=== PATIENT | female | born 1955 | race Caucasian/White ===

== ENCOUNTER 2017-04-14 07:30 | Inpatient (IN) | payer OTHER ==
[~2017-04-14] VITALS: Ht 170.2 cm; Wt 93.5 kg
[~2017-04-14 07:30] MED LIST: BLOOD PRESSURE MEDS; CHOLESTEROL MEDS; HYDR-762 PO; INSU100C3 SQ; INSU100C5 SQ
[2017-05-19] VITALS (20 sets, daily range): BP systolic 108–203; BP diastolic 42–81; PULSE 66–97; RESP 12–20; Ht 170.2 cm; Wt 93.5 kg
[2017-05-19] MEDS ORDERED: CEFAZOLIN 2 GM/50 ML (PMX) 50 ML IVPB SCH (07:00)
[2017-05-19] MEDS ORDERED: ASPI-664 PO (07:19)
[2017-05-19] MEDS ORDERED: MECL-77 PO (07:19)
[2017-05-19] MEDS ORDERED: LYRI100 PO (07:19)
[2017-05-19] MEDS ORDERED: LISI40TA9 PO (07:19)
[2017-05-19] MEDS ORDERED: CARV12.598 PO (07:19)
[2017-05-19] MEDS ORDERED: GLIP5TAB13 PO (07:19)
[2017-05-19] MEDS ORDERED: PARO20TA58 PO (07:20)
[2017-05-19] MEDS ORDERED: ALPR0.254 PO (07:20)
[2017-05-19] MEDS ORDERED: HYDR-3672 PO (07:20)
[2017-05-19] MEDS ORDERED: ISOS10TA2 PO (07:20)
[2017-05-19] MEDS ORDERED: SPIR25TA PO (07:20)
--- NOTE | 2017-05-19 07:43 | HPN ---
Date/Time of Note Date/Time of Note DATE: 05/19/17 TIME: 07:43 Interval H&P Admission Note Pt. seen H&P reviewed: No system changes SHEY MURRELL DPM May 19, 2017 07:43
[2017-05-19] MEDS ORDERED: morphine SULFATE/PF (10 MG/10 ML) INJ ONE (07:46)
[2017-05-19] MEDS ORDERED: MIDAZOLAM 1 MG/ML 2 ML INJ ONE (07:46)
[2017-05-19] MEDS ORDERED: METOCLOPRAMIDE 10 MG INJ ONE (07:46)
[2017-05-19] MEDS ORDERED: PROPOFOL 100 ML ONE (08:24)
[2017-05-19] MEDS ORDERED: CEFAZOLIN 1 GM INJ ONE (08:29)
[2017-05-19] MEDS ORDERED: FENTAnyl 50 MCG/ML VIAL ONE (08:32)
[2017-05-19] MEDS ORDERED: EPHEDrine SULFATE 50 MG/5 ML SYG ONE ×2 (08:33→10:28)
[2017-05-19] MEDS ORDERED: ONDANSETRON 4 MG INJ ONE (08:39)
[2017-05-19] MEDS ORDERED: METOCLOPRAMIDE 10 MG INJ IV PRN (09:30)
[2017-05-19] MEDS ORDERED: MEPERIDINE 25 MG INJ IV PRN (09:30)
[2017-05-19] MEDS ORDERED: ONDANSETRON 4 MG INJ IV PRN ×2 (09:30→10:30)
[2017-05-19] MEDS ORDERED: DIPHENHYDRAMINE 50 MG INJ IV PRN ×2 (09:30→10:30)
[2017-05-19] MEDS ORDERED: HYDROmorphONE (0.2 MG/ML) 10ML SYG IV PRN ×2 (09:30)
[2017-05-19] MEDS ORDERED: POLYMYXIN/BACITRACIN 1L IRRIG ONE ×2 (10:21→11:18)
[2017-05-19] MEDS ORDERED: NALBUPHINE HCL (10 MG/1 ML) INJ IV PRN (10:30)
[2017-05-19] MEDS ORDERED: NALOXONE (0.4 MG/ML) INJ IV PRN (10:30)
[2017-05-19] MEDS ORDERED: HYDROmorphONE 1 MG/ML SYG IV PRN ×2 (10:30)
[2017-05-19] MEDS ORDERED: PROPOFOL 20 ML ONE (11:15)
--- NOTE | 2017-05-19 12:08 | OPPN ---
Date/Time of Note Date/Time of Note DATE: 05/19/17 TIME: 12:06 Operative Report Preoperative Diagnosis Left ankle degenerative joint disease Left ankle pain Postoperative Diagnosis Same Operation/Procedure Performed Left total ankle replacement Intraoperative use and interpretation of fluoroscopy Application of posterior splint left lower extremity Provider: SHEY MURRELL DPM Estimated blood loss: minimal Transfusion Required: no Specimens Bone from the left ankle joint Grafts/Implants [employer] total ankle implant Complications: no SHEY MURRELL DPM May 19, 2017 12:07
[2017-05-19] MEDS ORDERED: KETOROLAC 30 MG INJ ONE (12:11)
[2017-05-19] MEDS ORDERED: KETOROLAC 30 MG INJ IV STA (12:19)
[2017-05-19] MEDS: HYDROmorphONE (0.2 MG/ML) 10ML SYG IV PRN ×2 (13:07→13:59)
[2017-05-19] MEDS: HYDROmorphONE 1 MG/ML SYG IV PRN ×3 (14:58→23:09)
--- NOTE | 2017-05-19 15:02 | RADRPT ---
PROCEDURE: Fluoroscopic guidance with x-ray images during left ankle arthroplasty. CLINICAL INDICATION: Left ankle arthroplasty. TECHNIQUE: 4.0 x-ray images were obtained during left ankle arthroplasty. COMPARISON: None available FINDINGS: 70.1 seconds of fluoroscopy time was utilized during pacemaker insertion. 4.0 x-ray images were obt ained during the procedure in progress for guidance. Cumulative dose total is 1.67 mGy. The left ank le arthroplasty is in good position and alignment. Procedure was performed by Dr. Summers. IMPRESSION: 1. Fluoroscopic guidance with x-ray images obtained for left ankle arthroplasty. RPTAT: XX .Darian Silva MD, MD Date Time Electronically viewed and signed by .Darian Silva MD, on 05/19/2017 15:01 .T/
--- NOTE | 2017-05-19 15:02 | RADRPT ---
PROCEDURE: XR left Ankle. CLINICAL INDICATION: Postop TECHNIQUE: Three views of the left ankle were performed. COMPARISON: None. FINDINGS: The left ankle arthroplasty is in good position and alignment. There is a fiberglass splint present . No fracture or bone destructive changes are seen. Atherosclerotic calcifications are seen. IMPRESSION: 1. Appropriate appearance to the left ankle arthroplasty. 2. The patient is postop. RPTAT: XX .Darian Silva MD, MD Date Time Electronically viewed and signed by .Darian Silva MD, on 05/19/2017 15:02 .T/
[2017-05-19] MEDS ORDERED: morphine 2 MG INJ IV PRN (17:00)
[2017-05-19] MEDS ORDERED: GLUCOSE GEL 15 GRAM TUBE PO PRN ×2 (17:00)
[2017-05-19] MEDS ORDERED: GLUCOSE GEL 15 GRAM TUBE BUCCAL PRN (17:00)
[2017-05-19] MEDS ORDERED: GLUCAGON 1 MG INJ IM PRN (17:00)
[2017-05-19] MEDS ORDERED: DEXTROSE 50% 50 ML SYRINGE IV PRN ×2 (17:00)
[2017-05-19] MEDS: HYDROCODONE/APAP (5/325) TAB PO PRN ×2 (17:12→20:10)
--- NOTE | 2017-05-19 19:19 | HP ---
Date/Time of Note Date/Time of Note DATE: 05/19/17 TIME: 19:15 Assessment/Plan VTE Prophylaxis VTE Prophylaxis Intervention: LMWH Lines/Catheters IV Catheter Type (from Nrsg): Peripheral IV Central line still needed: No Urinary Cath still in place: No Reason Cath still needed: urinary retention Assessment/Plan Chief Complaint/Hosp Course 61 yo female with hypertension, depression, DMII who has been admitted following ankle replacement surgery for OA - Pain control PRN Hypertension: - Continue home antihypertensives Depression: - Can continue xanax PRN - Continue paxil DMII: - Basal/bolus insulin HSQ ppx Discharge when cleared by surgery Problems: HPI/ROS Admit Date/Time Admit Date/Time May 19, 2017 at 06:11 Hx of Present Illness 61 yo female wtih h/o HTN, DMII, depression, OA who has been admitted following ankle replacement surgery this afternoon Currently feels some pain though tolerable PMH/Family/Social Social History Smoking Status: Former smoker Exam/Review of Systems Vital Signs Vitals Vital Signs Date Time Temp Pulse Resp B/P Pulse Ox O2 Delivery O2 Flow Rate FiO2 05/19/17 17:30 97 153/67 96 Nasal Cannula 3.0 05/19/17 14:45 98.0 16 Exam Exam well appearing, in NAD, AOx3 RRR no m/r/g CTAB Soft nt nt nd LLE in surgical wrapping Labs Result Diagram: 05/19/17 0655 Medications Medications Current Medications Naloxone HCl (Narcan) 0.1 mg Q2M PRN IV FOR RESP RATE 8 OR LESS; Start 05/19/17 at 10:30; Stop 05/20/17 at 10:29 Hydromorphone HCl (Dilaudid) 1 mg Q3H PRN IV BREAKTHROUGH PAIN Last administered on 05/19/17t 18:56; Admin Dose 1 MG; Start 05/19/17 at 10:30; Stop at 10:29 Hydromorphone HCl (Dilaudid) 0.2 mg Q3H PRN IV PAIN LEVEL 1-5; Start 05/19/17 at 10:30; Stop 05/20/17 at 10:29 Hydromorphone HCl (Dilaudid) 0.4 mg Q3H PRN IV PAIN LEVEL 6-10; Start 05/19/17 at 10:30; Stop 05/20/17 at 10:29 Diphenhydramine HCl (Benadryl) 25 mg Q6H PRN IV ITCHING; Start 05/19/17 at 10:30 ; Stop 05/20/17 at 10:29 Nalbuphine HCl (Nubain) 5 mg ONCE PRN IV ITCHING; Start 05/19/17 at 10:30; Stop 05/20/17 at 10:29 Ondansetron HCl (Zofran Inj) 4 mg Q6H PRN IV NAUSEA AND/OR VOMITING; Start 05/19 at 10:30; Stop 05/20/17 at 10:29 Alprazolam (Xanax) 0.25 mg Q8 PO ; Start 05/19/17 at 22:00 Carvedilol (Coreg) 12.5 mg BID PO ; Start 05/19/17 at 21:00 Isosorbide Dinitrate (Isordil) 10 mg TID PO ; Start 05/19/17 at 21:00 Acetaminophen/ Hydrocodone Bitart ([place] (5/325)) 1 tab Q3H PRN PO PAIN Last administered on 05/19/17t 17:12; Admin Dose 1 TAB; Start 05/19/17 at 17:00 Morphine Sulfate (morphine) 2 mg Q4H PRN IV pain; Start 05/19/17 at 17:00 Enoxaparin Sodium (Lovenox) 40 mg DAILY SC ; Start 05/20/17 at 09:00 Diagnostic Test (Pha) (Accu-Chek) 1 ea 02 XX ; Start 05/20/17 at 02:00 Insulin Glargine (Lantus) 14 unit DAILY@08 SC ; Start 05/20/17 at 08:00 Miscellaneous Information 1 ea NOTE XX ; Start 05/19/17 at 17:00 Glucose (Glutose) 15 gm Q15M PRN PO DECREASED GLUCOSE; Start 05/19/17 at 17:00 Glucose (Glutose) 22.5 gm Q15M PRN PO DECREASED GLUCOSE; Start 05/19/17 at 17:00 Dextrose (D50w Syringe) 25 ml Q15M PRN IV DECREASED GLUCOSE; Start 05/19/17 at 17:00 Dextrose (D50w Syringe) 50 ml Q15M PRN IV DECREASED GLUCOSE; Start 05/19/17 at 17:00 Glucagon (Glucagen) 1 mg Q15M PRN IM DECREASED GLUCOSE; Start 05/19/17 at 17:00 Glucose (Glutose) 15 gm Q15M PRN BUCCAL DECREASED GLUCOSE; Start 05/19/17 at 17: 00 SEKOU KRISHNAN MD May 19, 2017 19:19
[2017-05-19] MEDS ORDERED: ALPRAZOLAM 0.25 MG TAB PO PRN (19:30)
[2017-05-19] MEDS: ISOSORBIDE DINITRATE 10 MG TAB PO SCH (20:10)
[2017-05-19] MEDS: PAROXETINE 20 MG TAB PO SCH (20:11)
[2017-05-19] MEDS ORDERED: ALPRAZOLAM 0.25 MG TAB PO SCH (22:00)
[2017-05-20] VITALS (8 sets, daily range): BP systolic 127–197; BP diastolic 58–85; PULSE 86–107; RESP 18–20
[2017-05-20] MEDS: HYDROCODONE/APAP (5/325) TAB PO PRN ×4 (00:09→12:46)
[2017-05-20] MEDS: ACCU-CHEK XX SCH (02:00)
[2017-05-20] MEDS: HYDROmorphONE 1 MG/ML SYG IV PRN ×2 (02:11→08:20)
[2017-05-20] MEDS ORDERED: CYCLOBENZAPRINE 10 MG TAB PO ONE (02:55)
[2017-05-20 07:16] LABS: BASOPHILS % 0.2 % (0.0-2.0); EOSINOPHILS % 0.2 % (0.0-7.0); LYMPHOCYTES # 1.3 10^3/ul (0.8-2.9); MEAN CORPUSCULAR HEMOGLOBIN 31.1 pg (29.0-33.0); MEAN CORPUSCULAR HGB CONC 32.3 g/dl (32.0-37.0); MEAN CORPUSCULAR VOLUME 96.3 fl (82.0-101.0); MEAN PLATELET VOLUME 9.7 fl (7.4-10.4); MONOCYTE # 1.2 10^3/ul (0.3-0.9); MONOCYTES % 12.1 % (0.0-11.0); NEUTROPHIL # 7.5 10^3/ul (1.6-7.5); PLATELET COUNT 142 10^3/UL (140-415); RED BLOOD COUNT 3.22 10^6/ul (4.20-5.40); RED CELL DISTRIBUTION WIDTH 13.7 % (11.5-14.5); WHITE BLOOD COUNT 10.1 10^3/ul (4.8-10.8)
[2017-05-20 07:41] LABS: CALCIUM 8.6 mg/dl (8.4-10.2); CREATININE 4.39 mg/dl (0.44-1.00); POTASSIUM 4.3 mmol/L (3.5-5.1)
[2017-05-20] MEDS: ISOSORBIDE DINITRATE 10 MG TAB PO SCH ×3 (08:52→21:23)
[2017-05-20] MEDS: PAROXETINE 20 MG TAB PO SCH (08:52)
[2017-05-20] MEDS: INSULIN GLARGINE [LANtus] 3 ML PEN SC SCH (08:53)
[2017-05-20] MEDS: ENOXAPARIN 40 MG/0.4 ML SYG SC SCH (08:54)
--- NOTE | 2017-05-20 14:17 | PN ---
Date/Time of Note Date/Time of Note DATE: 05/20/17 TIME: 14:08 Assessment/Plan VTE Prophylaxis VTE Prophylaxis Intervention: LMWH Lines/Catheters IV Catheter Type (from Nrsg): Peripheral IV Urinary Cath still in place: Yes Reason Cath still needed: other (indicate) (Postoperatively ) Assessment/Plan Assessment/Plan 61 yo female with: 1. Status post Left total ankle replacement and application of posterior splint left lower extremity POD#1 Pain control, nonweightbearing left lower extremity. 2. End-stage renal disease on hemodialysis, Dr. Chapin following 3. Hypertension: Continue current antihypertensive medication, will add hydralazine as needed if needed 4. Diabetes mellitus: Agree with current insulin regimen, monitor blood sugars , ADA diet. 5. Major depressive disorder/anxiety disorder: continue Paxil along with Xanax [place] Prophylaxis : Pepcid for GI prophylaxis, Lovenox for DVT prophylaxis Disposition: discharge planning when okay with podiatry Dr Summers. Subjective 24 Hr Interval Summary Free Text/Dictation Patient complaining of severe pain of her left ankle status post surgery, pain medication adjusted, she is a end-stage renal disease on dialysis followed by nephrology Dr. Ennis while in-house. Plan is for discharge home at the time of discharge when cleared by surgery, patient is nonweightbearing on the left lower extremity and has a wheelchair at home already. Exam/Review of Systems Vital Signs Vitals Vital Signs Date Time Temp Pulse Resp B/P Pulse Ox O2 Delivery O2 Flow Rate FiO2 05/20/17 08:58 107 18 190/81 95 Nasal Cannula 2.0 05/20/17 08:00 99.5 Intake and Output 05/19/17 05/19/17 05/20/17 15:00 23:00 07:00 Intake Total 400 ml 840 ml 720 ml Output Total 20 ml 50 ml 800 ml Balance 380 ml 790 ml -80 ml Exam Constitutional: alert, oriented, well developed Respiratory: clear to auscultation, normal air movement Cardiovascular: nl pulses, regular rate and rhythm Gastrointestinal: non-tender, soft Musculoskeletal: other (Status post left ankle replacement, nonweightbearing left lower extremity) Extremities: normal pulses, other (No edema, clubbing or cyanosis) Results Result Diagram: 05/20/17 0613 05/20/17 0613 Results 24 hrs Laboratory Tests Test 05/19/17 17:13 05/19/17 20:16 05/20/17 06:13 05/20/17 08:31 Bedside Glucose 137 143 112 White Blood Count 10.1 Red Blood Count 3.22 L Hemoglobin 10.0 L Hematocrit 31.0 L Mean Corpuscular Volume 96.3 Mean Corpuscular Hemoglobin 31.1 Mean Corpuscular Hemoglobin Concent 32.3 Red Cell Distribution Width 13.7 Platelet Count 142 Mean Platelet Volume 9.7 Neutrophils % 74.0 Lymphocytes % 13.0 L Monocytes % 12.1 H Eosinophils % 0.2 Basophils % 0.2 Nucleated Red Blood Cells % 0.0 Neutrophils # 7.5 Lymphocytes # 1.3 Monocytes # 1.2 H Eosinophils # 0.0 Basophils # 0.0 Nucleated Red Blood Cells # 0.0 Sodium Level 134 L Potassium Level 4.3 Chloride Level 90 L Carbon Dioxide Level 27 Anion Gap 21 H Blood Urea Nitrogen 37 H Creatinine 4.39 H Glucose Level 114 Calcium Level 8.6 Test 05/20/17 12:48 Bedside Glucose 127 Medications Medications Current Medications Carvedilol (Coreg) 12.5 mg BID PO Last administered on 05/20/17 08:52; Admin Dose 12.5 MG; Start 05/19/17 at 21:00 Isosorbide Dinitrate (Isordil) 10 mg TID PO Last administered on 05/20/17 12: 24; Admin Dose 10 MG; Start 05/19/17 at 21:00 Acetaminophen/ Hydrocodone Bitart ([place] (5/325)) 1 tab Q3H PRN PO PAIN Last administered on 05/20/17 12:46; Admin Dose 1 TAB; Start 05/19/17 at 17:00 Morphine Sulfate (morphine) 2 mg Q4H PRN IV pain Last administered on 12:23; Admin Dose 2 MG; Start 05/19/17 at 17:00 Enoxaparin Sodium (Lovenox) 40 mg DAILY SC Last administered on 05/20/17 08:54 ; Admin Dose 40 MG; Start 05/20/17 at 09:00 Diagnostic Test (Pha) (Accu-Chek) 1 ea 02 XX ; Start 05/20/17 at 02:00 Insulin Glargine (Lantus) 14 unit DAILY@08 SC Last administered on 05/20/17 08 :53; Admin Dose 14 UNIT; Start 05/20/17 at 08:00 Miscellaneous Information 1 ea NOTE XX ; Start 05/19/17 at 17:00 Glucose (Glutose) 15 gm Q15M PRN PO DECREASED GLUCOSE; Start 05/19/17 at 17:00 Glucose (Glutose) 22.5 gm Q15M PRN PO DECREASED GLUCOSE; Start 05/19/17 at 17:00 Dextrose (D50w Syringe) 25 ml Q15M PRN IV DECREASED GLUCOSE; Start 05/19/17 at 17:00 Dextrose (D50w Syringe) 50 ml Q15M PRN IV DECREASED GLUCOSE; Start 05/19/17 at 17:00 Glucagon (Glucagen) 1 mg Q15M PRN IM DECREASED GLUCOSE; Start 05/19/17 at 17:00 Glucose (Glutose) 15 gm Q15M PRN BUCCAL DECREASED GLUCOSE; Start 05/19/17 at 17: 00 Paroxetine HCl (Paxil) 20 mg DAILY PO Last administered on 05/20/17 08:52; Admin Dose 20 MG; Start 05/19/17 at 19:30 Alprazolam (Xanax) 0.25 mg Q8H PRN PO anxiety; Start 05/19/17 at 19:30 Hydralazine HCl (Apresoline) 25 mg Q6H PRN PO ELEVATED SYSTOLIC BP Last administered on 05/20/17 03:10; Admin Dose 25 MG; Start 05/20/17 at 02:45 CASH KHAN May 20, 2017 14:17
[2017-05-20] MEDS ORDERED: HYDROmorphONE 1 MG/ML SYG IV PRN (14:30)
[2017-05-20] MEDS ORDERED: OXYCODONE/ACETAMINOPHEN (5/325) TAB PO PRN (14:30)
[2017-05-20] MEDS: OXYCODONE/ACETAMINOPHEN (5/325) TAB PO PRN ×3 (15:51→23:55)
--- NOTE | 2017-05-20 19:02 | PN ---
Date/Time of Note Date/Time of Note DATE: 05/20/17 TIME: 19:00 Assessment/Plan VTE Prophylaxis VTE Prophylaxis Intervention: ambulation Lines/Catheters IV Catheter Type (from Nrsg): Peripheral IV Urinary Cath still in place: Yes Subjective 24 Hr Interval Summary Free Text/Dictation Anesthesia note A 61 year female s/p Ankle replacement under spinal , GA pod #1 is doing fine no pain n/v headache , back is clean. care per surgery Exam/Review of Systems Vital Signs Vitals Vital Signs Date Time Temp Pulse Resp B/P Pulse Ox O2 Delivery O2 Flow Rate FiO2 05/20/17 14:00 99.2 98 18 127/58 91 05/20/17 08:58 Nasal Cannula 2.0 Intake and Output 05/19/17 05/19/17 05/20/17 15:00 23:00 07:00 Intake Total 400 ml 840 ml 720 ml Output Total 20 ml 50 ml 800 ml Balance 380 ml 790 ml -80 ml Results Result Diagram: 05/20/1713 05/20/17 0613 Results 24 hrs Laboratory Tests Test 05/19/17 20:16 05/20/17 06:13 05/20/17 08:31 05/20/17 12:48 Bedside Glucose 143 112 127 White Blood Count 10.1 Red Blood Count 3.22 L Hemoglobin 10.0 L Hematocrit 31.0 L Mean Corpuscular Volume 96.3 Mean Corpuscular Hemoglobin 31.1 Mean Corpuscular Hemoglobin Concent 32.3 Red Cell Distribution Width 13.7 Platelet Count 142 Mean Platelet Volume 9.7 Neutrophils % 74.0 Lymphocytes % 13.0 L Monocytes % 12.1 H Eosinophils % 0.2 Basophils % 0.2 Nucleated Red Blood Cells % 0.0 Neutrophils # 7.5 Lymphocytes # 1.3 Monocytes # 1.2 H Eosinophils # 0.0 Basophils # 0.0 Nucleated Red Blood Cells # 0.0 Sodium Level 134 L Potassium Level 4.3 Chloride Level 90 L Carbon Dioxide Level 27 Anion Gap 21 H Blood Urea Nitrogen 37 H Creatinine 4.39 H Glucose Level 114 Calcium Level 8.6 Test 05/20/17 17:52 Bedside Glucose 97 Medications Medications Current Medications Carvedilol (Coreg) 12.5 mg BID PO Last administered on 05/20/17t 08:52; Admin Dose 12.5 MG; Start 05/19/17 at 21:00 Isosorbide Dinitrate (Isordil) 10 mg TID PO Last administered on 05/20/17 12: 24; Admin Dose 10 MG; Start 05/19/17 at 21:00 Enoxaparin Sodium (Lovenox) 40 mg DAILY SC Last administered on 05/20/17 08:54 ; Admin Dose 40 MG; Start 05/20/17 at 09:00 Diagnostic Test (Pha) (Accu-Chek) 1 ea 02 XX ; Start 05/20/17 at 02:00 Insulin Glargine (Lantus) 14 unit DAILY@08 SC Last administered on 05/20/17 08 :53; Admin Dose 14 UNIT; Start 05/20/17 at 08:00 Miscellaneous Information 1 ea NOTE XX ; Start 05/19/17 at 17:00 Glucose (Glutose) 15 gm Q15M PRN PO DECREASED GLUCOSE; Start 05/19/17 at 17:00 Glucose (Glutose) 22.5 gm Q15M PRN PO DECREASED GLUCOSE; Start 05/19/17 at 17:00 Dextrose (D50w Syringe) 25 ml Q15M PRN IV DECREASED GLUCOSE; Start 05/19/17 at 17:00 Dextrose (D50w Syringe) 50 ml Q15M PRN IV DECREASED GLUCOSE; Start 05/19/17 at 17:00 Glucagon (Glucagen) 1 mg Q15M PRN IM DECREASED GLUCOSE; Start 05/19/17 at 17:00 Glucose (Glutose) 15 gm Q15M PRN BUCCAL DECREASED GLUCOSE; Start 05/19/17 at 17: 00 Paroxetine HCl (Paxil) 20 mg DAILY PO Last administered on 05/20/17 08:52; Admin Dose 20 MG; Start 05/19/17 at 19:30 Alprazolam (Xanax) 0.25 mg Q8H PRN PO anxiety; Start 05/19/17 at 19:30 Hydralazine HCl (Apresoline) 25 mg Q6H PRN PO ELEVATED SYSTOLIC BP Last administered on 05/20/17 03:10; Admin Dose 25 MG; Start 05/20/17 at 02:45 Oxycodone/ Acetaminophen (Percocet (5/ 325)) 1 tab Q4H PRN PO PAIN LEVEL 1-5; Start 05/20/17 at 14:30 Oxycodone/ Acetaminophen (Percocet (5/ 325)) 2 tab Q4H PRN PO PAIN LEVEL 6-10 Last administered on 05/20/17t 15:51; Admin Dose 2 TAB; Start 05/20/17 at 14:30 Hydromorphone HCl (Dilaudid) 0.5 mg Q4H PRN IV SEVERE PAIN LEVEL 7-10; Start at 14:30 ANTONI JENSEN MD May 20, 2017 19:02
--- NOTE | 2017-05-20 23:52 | PN ---
Date/Time of Note Date/Time of Note DATE: 05/20/17 TIME: 23:52 Assessment/Plan Lines/Catheters IV Catheter Type (from Nrsg): Peripheral IV Brito in Place (from Nrsg): Yes Assessment/Plan Problems: (1) H/O total ankle replacement (2) Postop check Assessment/Plan Normal postop. Dressing was changed. Patient reports relief of most of her pain after change of dressings. Posterior splint was reapplied. Patient is to remain nonweightbearing on the left lower extremity. Once patient is able to tolerate p.o. pain medication, patient may be discharged home. Patient will remain nonweightbearing for the next 4 weeks. Subjective 24 Hr Interval Summary Patient is status post left total ankle replacement; postop day 1. Reports moderate pain her left ankle. Reports she has kept her bandages clean dry and intact. Denies trauma reports no chest pain or shortness of breath. Pain Control: well controlled Exam/Review of Systems Vital Signs Vitals Vital Signs Date Time Temp Pulse Resp B/P Pulse Ox O2 Delivery O2 Flow Rate FiO2 05/20/17 20:10 Nasal Cannula 2.0 05/20/17 19:10 98.8 94 20 167/67 92 Intake and Output 05/20/17 05/20/17 05/21/17 15:00 23:00 07:00 Intake Total 700 ml Output Total 600 ml Balance 100 ml Exam Free Text/Dictation Morbidly obese female in no acute distress laying supine in bed. Left lower extremity bandages are clean dry and intact along with posterior splint. Bandages were removed. Incision on the anterior left ankle is well coapted with Steri-Strips intact and no signs of infection. Minimal edema present. Labs and imaging reviewed. Results Result Diagram: 05/20/1713 05/20/17 0613 SHEY MURRELL DPM May 20, 2017 23:52
[2017-05-21] VITALS (12 sets, daily range): BP systolic 98–131; BP diastolic 47–59; PULSE 83–88; RESP 18–20
[2017-05-21] MEDS: ACCU-CHEK XX SCH (02:00)
--- NOTE | 2017-05-21 03:30 | CONS ---
DATE OF ADMISSION: 05/19/2017 DATE OF CONSULTATION: 05/20/2017 REASON FOR CONSULTATION: Endstage renal disease. REQUESTING PHYSICIAN: Dr. Corona. HISTORY OF PRESENT ILLNESS: This is a 61-year-old female with a past medical history of end-stage renal disease, on dialysis Wednesday, Wednesday, Wednesday. Last hemodialysis was on Wednesday. The patient's access is a left AV fistula. 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 The patient has a history of diabetes, hypertension, and depression, who was admitted to [facility] following left total ankle replacement. The patient stated that she had an injury several years ago. Over the past period of time, the pain in her left ankle has progressively worsened, finally necessitating surgery. The patient had surgery. Following the surgery, the patient was admitted to med/surg telemetry for evaluation. The patient herself is currently complaining of pain in her left ankle. She denies any fevers, chills, nausea, vomiting. PAST MEDICAL HISTORY: As stated above, history of endstage renal disease, history of diabetes, history of hypertension, depression. PAST SURGICAL HISTORY: Status post left AV fistula. FAMILY HISTORY: Noncontributory. SOCIAL HISTORY: Does not drink, smoke, or do drugs. MEDICATION: The patient's medications have been reviewed. REVIEW OF SYSTEMS: Fourteen point review of systems was conducted. Pertinent positives stated in HPI, otherwise negative. PHYSICAL EXAMINATION: VITAL SIGNS: Blood pressure is 127/58, respiration 18, pulse 98, temperature 99.2. HEENT: Head is normocephalic. Pupils are reactive to light. NECK: Supple. HEART: Regular rate. LUNGS: Diminished breath sounds at the base. ABDOMEN: Soft, nontender to palpation. No rebound or guarding. EXTREMITIES: right leg. Left leg is in a dressing, clean, dry, and intact. NEUROLOGIC: No focal deficits. The patient's medications have been reviewed. LABORATORY: Sodium 134, potassium 4.3, chloride 90, BUN 37, creatinine 4.39. White count 10.1, hemoglobin 10.1, hematocrit 31.0, platelet count 142. IMPRESSION AND PLAN: This is a 61-year-old female who presents with: 1. Endstage renal disease, on dialysis Wednesday, Wednesday, Wednesday with access to left AV fistula. The patient's last hemodialysis was Wednesday. Plan for dialysis tomorrow for 3 hours, 3K bath, calcium 2.5, ultrafiltration as tolerated. 2. Anemia. We will monitor hemoglobin and hematocrit levels. We will give Epogen with hemodialysis. 3. Mineral bone disorder. Monitor calcium and phosphorus levels. We will give phos binders as needed. 4. Hypertension. Continue current blood pressure regimen. 5. Diabetes. Continue current insulin regimen. 6. Status post total left ankle placement. The patient is postop day number 1. Continue pain control. The patient is nonweightbearing. Follow up with surgery. 7. History of depression/anxiety disorder. Continue Paxil and Xanax p.r.n. Thank you, Dr. Corona for this interesting consult. It will be a pleasure to follow patient with you throughout the hospital course. Dictated By: Ronald Chapin DO /bipin/kendal /Document#: [id number]
[2017-05-21] MEDS: OXYCODONE/ACETAMINOPHEN (5/325) TAB PO PRN ×4 (04:12→22:21)
[2017-05-21 05:56] LABS: BASOPHILS % 0.2 % (0.0-2.0); EOSINOPHILS # 0.1 10^3/ul (0.0-0.5); EOSINOPHILS % 0.7 % (0.0-7.0); HEMATOCRIT 27.3 % (37.0-47.0); HEMOGLOBIN 9.1 g/dl (12.0-16.0); LYMPHOCYTES # 2.1 10^3/ul (0.8-2.9); LYMPHOCYTES % 22.8 % (15.0-51.0); MEAN CORPUSCULAR HEMOGLOBIN 31.6 pg (29.0-33.0); MEAN CORPUSCULAR HGB CONC 33.3 g/dl (32.0-37.0); MEAN CORPUSCULAR VOLUME 94.8 fl (82.0-101.0); MEAN PLATELET VOLUME 10.1 fl (7.4-10.4); MONOCYTE # 0.9 10^3/ul (0.3-0.9); MONOCYTES % 10.2 % (0.0-11.0); NEUTROPHILS % 65.7 % (39.0-77.0); PLATELET COUNT 143 10^3/UL (140-415); RED BLOOD COUNT 2.88 10^6/ul (4.20-5.40); RED CELL DISTRIBUTION WIDTH 13.6 % (11.5-14.5); WHITE BLOOD COUNT 9.2 10^3/ul (4.8-10.8)
[2017-05-21 06:20] LABS: MAGNESIUM 1.9 mg/dl (1.7-2.5); PHOSPHORUS 5.8 mg/dl (2.5-4.9)
[2017-05-21 06:31] LABS: CALCIUM 8.4 mg/dl (8.4-10.2); CREATININE 5.16 mg/dl (0.44-1.00); POTASSIUM 4.5 mmol/L (3.5-5.1)
[2017-05-21] MEDS: SEVELAMER 400 MG TAB PO SCH ×3 (07:50→17:52)
[2017-05-21] MEDS ORDERED: EPOETIN 10000 UNITS/1 ML INJ (ESRD) SC SCH (08:00)
--- NOTE | 2017-05-21 08:44 | PN ---
DATE: 05/21/2017 SUBJECTIVE DATA: The patient is currently stable. Complaining of pain in her left foot. Patient received pain medications. No other events noted. OBJECTIVE DATA: VITAL SIGNS: Blood pressure 115/53, respirations 18, pulse 87, and temperature 98.0. HEENT: Head is normocephalic. NECK: Supple. HEART: Regular rate. LUNGS: Diminished breath sounds at the base. ABDOMEN: Soft, nontender to palpation. No guarding. EXTREMITIES: Negative for clubbing, cyanosis, no edema on the right leg. The patient's left ankle dressing clean, dry, and intact. DERMATOLOGIC: No rashes. MUSCULOSKELETAL: No joint effusion. NEUROLOGIC: Unchanged exam. MEDICATIONS: Reviewed. LABORATORY AND DIAGNOSTIC DATA: White count 9.2, hemoglobin 9.1, hematocrit 27.3, and platelet count 143. Sodium 135, potassium 4.5, BUN 57, creatinine 5.16, and phosphorus 5.8. ASSESSMENT AND PLAN: 1. End-stage renal disease. The patient on dialysis Wednesday, Wednesday, Wednesday access left AV fistula. Plan for dialysis today for 3 hours on 2K bath, calcium 2.5, as tolerated. 2. Anemia. Monitor H and H levels. We will give Epogen with dialysis. 3. Mineral bone disorder. Continue monitor calcium and phosphorus levels. We will give phosphate binders. 4. Hypertension. Continue current blood pressure regimen. 5. Diabetes. Continue current insulin regimen. 6. Status post left ankle replacement. The patient is postop day number 2. Continue pain control. Follow up with Surgery. 7. History depression and anxiety disorder. Continue Paxil and Xanax. Dictated By: Ronald Chapin DO /bipin/nathan /Document#: [id number]
[2017-05-21] MEDS: ISOSORBIDE DINITRATE 10 MG TAB PO SCH ×3 (08:58→20:16)
[2017-05-21] MEDS: PAROXETINE 20 MG TAB PO SCH (08:58)
[2017-05-21] MEDS: ENOXAPARIN 40 MG/0.4 ML SYG SC SCH (09:06)
[2017-05-21] MEDS: INSULIN GLARGINE [LANtus] 3 ML PEN SC SCH (09:10)
--- NOTE | 2017-05-21 12:48 | PN ---
Date/Time of Note Date/Time of Note DATE: 05/21/17 TIME: 12:12 Assessment/Plan VTE Prophylaxis VTE Prophylaxis Intervention: SCD's Lines/Catheters IV Catheter Type (from Nrsg): Saline Lock Urinary Cath still in place: Yes Reason Cath still needed: other (indicate) (need to discontinue ) Assessment/Plan Assessment/Plan 61 yo female with: 1. Status post Left total ankle replacement and application of posterior splint left lower extremity POD#2 Pain control, nonweightbearing left lower extremity x [address] Summers D/c plan home with Home Health PT tomorrow after discussion with patient today D/c Brito catheter today 2. End-stage renal disease on hemodialysis, Dr. Chapin following, HD today per schedule M/W/ 3. Hypertension: Continue current antihypertensive medication, hydralazine as needed if needed 4. Diabetes mellitus: Agree with current insulin regimen, monitor blood sugars, ADA diet. Will resume outpatient regimen at discharge. 5. Major depressive disorder/anxiety disorder: continue Paxil along with Xanax PRN Prophylaxis: Pepcid for GI prophylaxis, Lovenox for DVT prophylaxis Disposition: Discharge planning tomorrow, nonweightbearing left lower extremity for 4 weeks, follow-up with podiatry Dr Summers in 1 to 2 weeks. Subjective 24 Hr Interval Summary Free Text/Dictation Patient doing OK, HD today and d/c plan in AM with outpatient follow-up with PCP Follow up with Dr Summers in 1 to 2 weeks Exam/Review of Systems Vital Signs Vitals Vital Signs Date Time Temp Pulse Resp B/P Pulse Ox O2 Delivery O2 Flow Rate FiO2 05/21/17 12:09 84 113/50 05/21/17 08:29 97.8 18 90 05/20/17 20:10 Nasal Cannula 2.0 Intake and Output 05/20/17 05/20/17 05/21/17 15:00 23:00 07:00 Intake Total 700 ml 500 ml Output Total 600 ml 150 ml Balance 100 ml 350 ml Exam Constitutional: alert, oriented, other (on HD currently ), well developed Respiratory: clear to auscultation, normal air movement Cardiovascular: nl pulses, regular rate and rhythm Gastrointestinal: non-tender, soft Musculoskeletal: nl extremities to inspection, other (no edema, clubbing or cyanosis ) Neurological: WORKERS COMPENSATION CLAIMS SPECIALIST II-XII intact, nl mental status, nl speech, nl strength Results Result Diagram: 05/21/17 0439 05/21/17 0439 Results 24 hrs Laboratory Tests Test 05/20/17 12:48 05/20/17 17:52 05/21/17 04:39 05/21/17 08:55 Bedside Glucose 127 97 86 White Blood Count 9.2 Red Blood Count 2.88 L Hemoglobin 9.1 L Hematocrit 27.3 L Mean Corpuscular Volume 94.8 Mean Corpuscular Hemoglobin 31.6 Mean Corpuscular Hemoglobin Concent 33.3 Red Cell Distribution Width 13.6 Platelet Count 143 Mean Platelet Volume 10.1 Neutrophils % 65.7 Lymphocytes % 22.8 Monocytes % 10.2 Eosinophils % 0.7 Basophils % 0.2 Nucleated Red Blood Cells % 0.0 Neutrophils # 6.0 Lymphocytes # 2.1 Monocytes # 0.9 Eosinophils # 0.1 Basophils # 0.0 Nucleated Red Blood Cells # 0.0 Sodium Level 135 Potassium Level 4.5 Chloride Level 89 L Carbon Dioxide Level 27 Anion Gap 24 H Blood Urea Nitrogen 57 H Creatinine 5.16 H Glucose Level 81 Calcium Level 8.4 Phosphorus Level 5.8 H Magnesium Level 1.9 Medications Medications Current Medications Carvedilol (Coreg) 12.5 mg BID PO Last administered on 05/20/17 21:23; Admin Dose 12.5 MG; Start 05/19/17 at 21:00 Isosorbide Dinitrate (Isordil) 10 mg TID PO Last administered on 05/20/17 21: 23; Admin Dose 10 MG; Start 05/19/17 at 21:00 Enoxaparin Sodium (Lovenox) 40 mg DAILY SC Last administered on 05/21/17 09:06 ; Admin Dose 40 MG; Start 05/20/17 at 09:00 Diagnostic Test (Pha) (Accu-Chek) 1 ea 02 XX ; Start 05/20/17 at 02:00 Insulin Glargine (Lantus) 14 unit DAILY@08 SC Last administered on 05/21/17 09 :10; Admin Dose 14 UNIT; Start 05/20/17 at 08:00 Miscellaneous Information 1 ea NOTE XX ; Start 05/19/17 at 17:00 Glucose (Glutose) 15 gm Q15M PRN PO DECREASED GLUCOSE; Start 05/19/17 at 17:00 Glucose (Glutose) 22.5 gm Q15M PRN PO DECREASED GLUCOSE; Start 05/19/17 at 17:00 Dextrose (D50w Syringe) 25 ml Q15M PRN IV DECREASED GLUCOSE; Start 05/19/17 at 17:00 Dextrose (D50w Syringe) 50 ml Q15M PRN IV DECREASED GLUCOSE; Start 05/19/17 at 17:00 Glucagon (Glucagen) 1 mg Q15M PRN IM DECREASED GLUCOSE; Start 05/19/17 at 17:00 Glucose (Glutose) 15 gm Q15M PRN BUCCAL DECREASED GLUCOSE; Start 05/19/17 at 17: 00 Paroxetine HCl (Paxil) 20 mg DAILY PO Last administered on 05/21/17 08:58; Admin Dose 20 MG; Start 05/19/17 at 19:30 Alprazolam (Xanax) 0.25 mg Q8H PRN PO anxiety Last administered on 05/21/17 01 :33; Admin Dose 0.25 MG; Start 05/19/17 at 19:30 Hydralazine HCl (Apresoline) 25 mg Q6H PRN PO ELEVATED SYSTOLIC BP Last administered on 05/20/17 03:10; Admin Dose 25 MG; Start 05/20/17 at 02:45 Oxycodone/ Acetaminophen (Percocet (5/ 325)) 1 tab Q4H PRN PO PAIN LEVEL 1-5; Start 05/20/17 at 14:30 Oxycodone/ Acetaminophen (Percocet (5/ 325)) 2 tab Q4H PRN PO PAIN LEVEL 6-10 Last administered on 05/21/17 09:00; Admin Dose 2 TAB; Start 05/20/17 at 14:30 Hydromorphone HCl (Dilaudid) 0.5 mg Q4H PRN IV SEVERE PAIN LEVEL 7-10 Last administered on 05/21/17 12:04; Admin Dose 0.5 MG; Start 05/20/17 at 14:30 CASH KHAN May 21, 2017 12:22
[2017-05-21] MEDS ORDERED: HYDROmorphONE 1 MG/ML SYG IV PRN (14:00)
[2017-05-21] MEDS: DOCUSATE SODIUM 100 MG CAP PO SCH ×2 (17:52→20:13)
[2017-05-21] MEDS: INSULIN ASPART [NOVOLOG] 3 ML PEN SC SCH ×2 (17:52→21:00)
[2017-05-21] MEDS: POLYETHYLENE GLYCOL 17 GM PACKET NGT SCH (17:52)
[2017-05-22 02:00] VITALS: BP 105/51; RESP 18
[2017-05-22] MEDS ORDERED: ACCU-CHEK XX SCH ×2 (02:00)
[2017-05-22] MEDS: OXYCODONE/ACETAMINOPHEN (5/325) TAB PO PRN ×4 (03:04→16:10)
[2017-05-22 06:01] LABS: CALCIUM 8.7 mg/dl (8.4-10.2); CREATININE 4.48 mg/dl (0.44-1.00); POTASSIUM 4.2 mmol/L (3.5-5.1)
[2017-05-22 06:22] LABS: MAGNESIUM 2.1 mg/dl (1.7-2.5); PHOSPHORUS 5.7 mg/dl (2.5-4.9)
[2017-05-22 07:00] VITALS: BP 144/63; RESP 18
[2017-05-22] MEDS: INSULIN ASPART [NOVOLOG] 3 ML PEN SC SCH ×2 (07:50→11:40)
[2017-05-22] MEDS: INSULIN GLARGINE [LANtus] 3 ML PEN SC SCH (08:55)
[2017-05-22] MEDS: SEVELAMER 400 MG TAB PO SCH ×2 (08:57→12:22)
[2017-05-22] MEDS: ISOSORBIDE DINITRATE 10 MG TAB PO SCH ×2 (08:58→12:22)
[2017-05-22] MEDS: DOCUSATE SODIUM 100 MG CAP PO SCH (08:58)
[2017-05-22] MEDS: PAROXETINE 20 MG TAB PO SCH (08:58)
[2017-05-22] MEDS: POLYETHYLENE GLYCOL 17 GM PACKET NGT SCH (08:59)
[2017-05-22] MEDS: ENOXAPARIN 40 MG/0.4 ML SYG SC SCH (09:04)
--- NOTE | 2017-05-22 09:06 | PN ---
DATE: 05/22/2017 SUBJECTIVE DATA: Subjectively, the patient continues to have pain controlled. No other events noted. Patient had hemodialysis yesterday, tolerated well. OBJECTIVE DATA: VITAL SIGNS: Blood pressure is 140/63, respiration 18, pulse 85, temperature 98.7. HEENT: Head is normocephalic. NECK: Supple. HEART: Regular rate. LUNGS: Diminished breath sounds at the base. ABDOMEN: Soft, nontender to palpation. No rebound or guarding. EXTREMITIES: Negative for clubbing, cyanosis, no edema. The patient does have dressing over left ankle, intact. DERMATOLOGIC: No rashes. MUSCULOSKELETAL: No joint effusions. NEUROLOGIC: No change in exam. MEDICATIONS: The patient's medications were reviewed. LABORATORY AND DIAGNOSTIC DATA: Sodium 140, potassium 2, chloride 94, BUN 42, creatinine 4.48. ASSESSMENT AND PLAN: 1. End-stage renal disease. Patient is on dialysis Wednesday with access left AV fistula. Patient had hemodialysis yesterday and tolerated it well. Anticipate next dialysis on Wednesday. 2. Anemia. Monitor hemoglobin and hematocrit levels. Continue Epogen. 3. Mineral bone disorder. Continue to monitor calcium and phosphate levels. 4. Hypertension. Continue current blood pressure regimen. 5. Diabetes. Continue Accu-Cheks and sliding scale. 6. Status post-left ankle effacement. Continue pain control. Follow up with surgery. 7. History of depression/anxiety disorder. Continue current medical management. Dictated By: Ronald Chapin DO /bipin/sara /Document#: [id number]
--- NOTE | 2017-05-22 10:30 | PN ---
Date/Time of Note Date/Time of Note DATE: 05/22/17 TIME: 10:30 Assessment/Plan VTE Prophylaxis VTE Prophylaxis Intervention: LMWH Lines/Catheters IV Catheter Type (from Nrs): Saline Lock Urinary Cath still in place: Yes Assessment/Plan Assessment/Plan 61 yo female with: 1. Status post Left total ankle replacement and application of posterior splint left lower extremity POD#2 Pain control, nonweightbearing left lower extremity x [address] Summers Outpatient DVT prophylaxis with Eliquis, renal dosing 2.5 mg p.o. twice daily for 4 weeks while patient is nonweightbearing to the left lower extremity. D/c home today with Home Health PT, follow-up with Dr. Summers in 1 week. 2. End-stage renal disease on hemodialysis, Dr. Chapin following, HD today per schedule M//. Last HD yesterday 3. Hypertension: Continue current antihypertensive medication, hydralazine as needed if needed 4. Diabetes mellitus: Resume outpatient regimen at discharge. 5. Major depressive disorder/anxiety disorder: continue Paxil along with Xanax PRN Prophylaxis: Pepcid for GI prophylaxis, Lovenox for DVT prophylaxis Disposition: Discharge home today with home health PT, nonweightbearing left lower extremity for 4 weeks, follow-up with podiatry Dr Summers in 1 week. Subjective 24 Hr Interval Summary Free Text/Dictation Patient doing well this morning, status post dialysis yesterday Wednesday, she is on room air, pain is controlled. She already has a wheelchair at home. She will be discharged home with home health PT today. She is nonweightbearing left lower extremity x 4 weeks She is to follow-up with Dr. Summers in 1 week, discussed with Dr. Summers, will have patient on Eliquis, renally dosed for HD, for oral anticoagulant for DVT prophylaxis for the next 4 week since she is going to be nonweightbearing. Exam/Review of Systems Vital Signs Vitals Vital Signs Date Time Temp Pulse Resp B/P Pulse Ox O2 Delivery O2 Flow Rate FiO2 05/22/17 08:00 Nasal Cannula 2.0 05/22/17 07:00 98.7 85 18 144/63 95 Intake and Output 05/21/17 05/21/17 05/22/17 15:00 23:00 07:00 Intake Total 500 ml 680 ml 450 ml Output Total 3000 ml 50 ml Balance -2500 ml 630 ml 450 ml Exam Constitutional: alert, oriented, other (Nonweightbearing left lower extremity) , well developed Respiratory: clear to auscultation, normal air movement Cardiovascular: nl pulses, regular rate and rhythm Gastrointestinal: non-tender, soft Musculoskeletal: other (Status post left ankle total replacement, splint in place.) Extremities: normal pulses Neurological: VIDEOGAME TESTER II-XII intact, nl mental status, nl speech, other ( Nonweightbearing left lower extreme) Results Result Diagram: 05/21/17 0439 05/22/17 0440 Results 24 hrs Laboratory Tests Test 05/21/17 17:51 05/21/17 21:14 05/22/17 04:40 05/22/17 08:30 Bedside Glucose 129 76 84 Sodium Level 142 Potassium Level 4.2 Chloride Level 94 L Carbon Dioxide Level 31 Anion Gap 21 H Blood Urea Nitrogen 40 #H Creatinine 4.48 H Glucose Level 91 Calcium Level 8.7 Phosphorus Level 5.7 H Magnesium Level 2.1 Medications Medications Current Medications Carvedilol (Coreg) 12.5 mg BID PO Last administered on 05/22/17 08:58; Admin Dose 12.5 MG; Start 05/19/17 at 21:00 Isosorbide Dinitrate (Isordil) 10 mg TID PO Last administered on 05/22/17 08: 58; Admin Dose 10 MG; Start 05/19/17 at 21:00 Enoxaparin Sodium (Lovenox) 40 mg DAILY SC Last administered on 05/22/17 09:04 ; Admin Dose 40 MG; Start 05/20/17 at 09:00 Diagnostic Test (Pha) (Accu-Chek) 1 ea 02 XX ; Start 05/20/17 at 02:00 Insulin Glargine (Lantus) 14 unit DAILY@08 SC Last administered on 05/22/17 08 :55; Admin Dose 14 UNIT; Start 05/20/17 at 08:00 Miscellaneous Information 1 ea NOTE XX ; Start 05/19/17 at 17:00 Glucose (Glutose) 15 gm Q15M PRN PO DECREASED GLUCOSE; Start 05/19/17 at 17:00 Glucose (Glutose) 22.5 gm Q15M PRN PO DECREASED GLUCOSE; Start 05/19/17 at 17:00 Dextrose (D50w Syringe) 25 ml Q15M PRN IV DECREASED GLUCOSE; Start 05/19/17 at 17:00 Dextrose (D50w Syringe) 50 ml Q15M PRN IV DECREASED GLUCOSE; Start 05/19/17 at 17:00 Glucagon (Glucagen) 1 mg Q15M PRN IM DECREASED GLUCOSE; Start 05/19/17 at 17:00 Glucose (Glutose) 15 gm Q15M PRN BUCCAL DECREASED GLUCOSE; Start 05/19/17 at 17: 00 Paroxetine HCl (Paxil) 20 mg DAILY PO Last administered on 05/22/17 08:58; Admin Dose 20 MG; Start 05/19/17 at 19:30 Alprazolam (Xanax) 0.25 mg Q8H PRN PO anxiety Last administered on 05/21/17 01 :33; Admin Dose 0.25 MG; Start 05/19/17 at 19:30 Hydralazine HCl (Apresoline) 25 mg Q6H PRN PO ELEVATED SYSTOLIC BP Last administered on 05/20/17 03:10; Admin Dose 25 MG; Start 05/20/17 at 02:45 Oxycodone/ Acetaminophen (Percocet (5/ 325)) 1 tab Q4H PRN PO PAIN LEVEL 1-5; Start 05/20/17 at 14:30 Oxycodone/ Acetaminophen (Percocet (5/ 325)) 2 tab Q4H PRN PO PAIN LEVEL 6-10 Last administered on 05/22/17 07:13; Admin Dose 2 TAB; Start 05/20/17 at 14:30 Hydromorphone HCl (Dilaudid) 0.5 mg Q8H PRN IV SEVERE PAIN LEVEL 7-10 Last administered on 05/22/17 05:02; Admin Dose 0.5 MG; Start 05/21/17 at 14:00 Polyethylene Glycol (Miralax) 17 gm DAILY NGT Last administered on 05/22/17 08 :59; Admin Dose 17 GM; Start 05/21/17 at 13:00 Docusate Sodium (Colace) 100 mg BID PO Last administered on 05/22/17 08:58; Admin Dose 100 MG; Start 05/21/17 at 13:00 CASH KHAN May 22, 2017 10:30
--- NOTE | 2017-05-22 10:39 | PDOCDIS ---
Discharge Instructions CONDITION Patient Condition: Stable HOME CARE INSTRUCTIONS: Special Diet: 1800 AVIVA, 2G NA ACTIVITY: Activity Restrictions: No Weight Bearing (Left lower extremity) Activity Restrictions Comment: Wheelchair , patient has one already at home FOLLOW UP/APPOINTMENTS Follow-up Plan Follow-up with primary care physician within 1 week Follow-up with Dr. Summers in 1 week. Follow-up with home health PT CASH KHAN May 22, 2017 10:39
[2017-05-22] MEDS ORDERED: APIX2.5T PO (10:42)
[2017-05-22] MEDS ORDERED: Oxycodone/Acetamin (5/325) PO (10:42)
[2017-05-22 14:00] VITALS: BP 121/55; RESP 18
== END 2017-05-22 16:35 | disposition home health service (06) | DRG 469 ==
LOC: EDSTATUS 07:30 → REC 05-19 06:11 → MS1 05-19 14:01
PROVIDERS: ADMIT Podiatrist Foot & Ankle Surgery; ATTEND Podiatrist Foot & Ankle Surgery
PROC: 0SRG0JZ Replacement of Left Ankle Joint with Synthetic Substitute, Open Approach (ICD-10-PCS; principal; 2017-05-19 07:30)
PROC: 5A1D60Z (ICD-10-PCS; 2017-05-21)
DX: M19.072 Primary osteoarthritis, left ankle and foot (principal); N18.6 End stage renal disease; I12.0 Hypertensive chronic kidney disease with stage 5 chronic kidney disease or end stage renal disease; E11.22 Type 2 diabetes mellitus with diabetic chronic kidney disease; Z99.2 Dependence on renal dialysis; F32.9 Major depressive disorder, single episode, unspecified; F41.9 Anxiety disorder, unspecified; D64.9 Anemia, unspecified
CPT/HCPCS: 73610; 80048; 82962; 83735; 84100; 84132; 85025; 88304; 88311; 90935; 97110; 97116; 97161; 97530; J0690; J1170; J1650; J1815; J1885; J2175; J2250; J2270; J2274; J2405; J2765; J3010; Q4081